=== PATIENT | male | born 1990 | race Caucasian/White ===

== ENCOUNTER 2017-07-24 17:58 | Emergency (ER) | payer OTHER, MEDICAID ==
[2017-07-24 18:14] VITALS: BP 124/86
--- NOTE | 2017-07-24 19:03 | ED Physician Documentation ---
PD HPI OPHTHO - Stated complaint Stated Complaint: L EYE INJ - Chief complaint Chief Complaint: Heent - History obtained from History obtained from: Patient - History of Present Illness Timing - onset: Today Timing - duration: Hours Timing - details: Abrupt onset, Still present Location: Left Quality / character: Aching Associated symptoms: Tearing, FB sensation. No: Redness, Swelling, Photophobia , Decreased vision Contributing factors: FB (he was chipping rock and a piece bounced back and struck him in left eye. Has FB sensation that did not improve with rinsing the eye.), Blunt trauma Similar symptoms before: Has not had sx before Recently seen: Not recently seen Review of Systems Constitutional: denies: Fever, Chills Eyes: reports: Irritation. denies: Loss of vision, Decreased vision, Photophobia Nose: denies: Rhinorrhea / runny nose, Congestion Throat: denies: Sore throat Respiratory: denies: Cough Neurologic: denies: Headache, Head injury PD PAST MEDICAL HISTORY - Past Medical History Past Medical History: No Cardiovascular: None Respiratory: None Neuro: None Endocrine/Autoimmune: None - Past Surgical History Past Surgical History: Yes - Present Medications Home Medications: Ambulatory Orders Medication Instructions Recorded Confirmed Erythromycin Base [Erythromycin 1 applic LEFTGABBYE QID #3.5 g 07/24/17 Ophthalmic Ointment] - Allergies Allergies/Adverse Reactions: Allergies Allergy/AdvReac Type Severity Reaction Status Date / Time No Known Drug Allergies Allergy Verified 07/24/17 18:14 - Social History Does the pt smoke?: Yes Smoking Status: Current every day smoker Does the pt drink ETOH?: No Does the pt have substance abuse?: Yes Substance Use and Type: Marijuana - Immunizations Immunizations are current?: Yes - POLST Patient has POLST: No PD ED PE NORMAL - Vitals Vital signs reviewed: Yes - General General: Alert and oriented X 3, No acute distress, Well developed/nourished - HEENT HEENT: PERRL, EOMI, Pharynx benign, Dentition benign, Other PD ED PE EXPANDED - Eyes Eyes: Left eye, Corneal abrasion, Fluorescein uptake, Anterior chambers clear, Normal fundi. No: Conj/sclera FB, Corneal FB, Corneal ulcer Results - Vitals Vitals: Oxygen O2 Source Room air PD MEDICAL DECISION MAKING - ED course Complexity details: considered differential (superficial dye uptake in small area left lower eye, not in visual axis. ), d/w patient Departure - Departure Disposition: 01 Home, Self Care Clinical Impression: Left eye pain Corneal abrasion Qualifiers: Encounter type: initial encounter Laterality: left Qualified Code(s): S05.02XA - Injury of conjunctiva and corneal abrasion without foreign body, left eye, initial encounter Condition: Stable Record reviewed to determine appropriate education?: Yes Instructions: ED Eye Injury Corneal Abrasion Follow-Up: Wayne Mcdonough MD [Provider Admit Priv/Credential] - Prescriptions: Erythromycin Base [Erythromycin Ophthalmic Ointment] 1 applic LEFTGABBYE QID #3.5 g Comments: There is a corneal abrasion. I do not see any foreign body still. I do not see any signs of injury to the anterior or posterior chamber of the eye. Using proparacaine numbing eyedrops as needed overnight into the morning. Do not use them beyond the morning or if you are going to be out and around. Use Tylenol or ibuprofen if needed for pains and at the hydrocodone if needed short-term. I would anticipate this to be improving into tomorrow and mostly better by . Recheck back with us or with an eyewear manufacturing tech if not all better on . Return sooner if worsening. If you do develop matting redness and purulence, like infection, then start the erythromycin ointment. At this point I do not think there is an infection just irritation and the antibiotic is not needed at this point. Discharge Date/Time: 07/24/17 20:11
[2017-07-24] MEDS ORDERED: HYDROcod/ACET 5/325 Prepack 6 PO STA (19:31)
[2017-07-24] MEDS ORDERED: HYDROcod/ACETAM 5/325 MG TABLET PO STA (19:31)
[2017-07-24] MEDS ORDERED: NAPROXEN 250 MG TABLET PO STA (19:31)
== END 2017-07-24 20:11 | disposition home or self-care (01) ==
LOC: ED 17:58
DX: S05.02XA Injury of conjunctiva and corneal abrasion without foreign body, left eye, initial encounter (principal); H57.12 Ocular pain, left eye; W22.8XXA Striking against or struck by other objects, initial encounter; Y92.89 Other specified places as the place of occurrence of the external cause; Y99.0 Civilian activity done for income or pay; F17.200 Nicotine dependence, unspecified, uncomplicated
CPT/HCPCS: 1040M; 99283; A9270

== ENCOUNTER 2017-10-15 08:54 | Day surgery (SDC) | payer MEDICAID ==
[2017-10-15] MEDS ORDERED: LACTATED RINGERS 1,000 ML IV ONE (09:15)
[2017-10-15 11:21] VITALS: BP 104/43
[2017-10-15] MEDS ORDERED: fentaNYL 250 MCG/5 ML VIAL IVP ONE (11:59)
[2017-10-15] MEDS ORDERED: MIDAZOLAM 2 MG/2 ML VIAL IVP ONE (11:59)
== END 2017-10-15 08:55 | disposition home or self-care (01) ==
LOC: SDS 08:54
PROVIDERS: ATTEND Surgery
PROC: 0DJD8ZZ Inspection of Lower Intestinal Tract, Via Natural or Artificial Opening Endoscopic (ICD-10-PCS; principal; 2017-10-15 09:15)
DX: K62.5 Hemorrhage of anus and rectum (principal); K64.8 Other hemorrhoids; F17.210 Nicotine dependence, cigarettes, uncomplicated
CPT/HCPCS: 45378; J3010; J7120

== ENCOUNTER 2022-05-09 09:40 | Emergency (ER) | payer MEDICAID, OTHER ==
--- NOTE | 2022-05-09 09:50 | ED Physician Documentation ---
PD HPI Fall - Stated complaint Stated Complaint: FALL FROM 25FT - Chief complaint Chief Complaint: Trauma Tip - History obtained from History obtained from: Patient - History of Present Illness Mechanism of injury: Slipped Fall distance: Greater than 20ft (patient anand doing house siding on scaffolding, slipped on frosted surface and fell 32 ft onto flat ground on right side. Pain in right hand/arm, left ankle, some on right face. denies loc/[place]/neck pain/chest pain.) Where injury occurred: Work Timing - onset: Today (able to stand and walk and brought here to ER by coworkers.) Injury(ies) location: Face, Right Upper Extremity, Right Hand, Left Foot. No: Neck, Chest, Abdomen Quality of pain: Pain, Aching Associated symptoms: No: LOC, AMS, Neck pain, Weakness, Paresthesias Symptoms improve with: Rest Worsens with: Movement (of base of thumb mainly) Similar symptoms before: Has not had sx before Recently seen: Not recently seen Review of Systems Constitutional: denies: Fever, Chills Nose: denies: Rhinorrhea / runny nose, Congestion Throat: denies: Sore throat Cardiac: denies: Chest pain / pressure Respiratory: denies: Cough GI: denies: Abdominal Pain, Nausea Skin: reports: Abrasion (s) (right elbow with mild laceration, not needing suturing.) Musculoskeletal: denies: Neck pain, Back pain Neurologic: denies: Focal weakness, Numbness, Altered mental status, Headache, Head injury, LOC PD PAST MEDICAL HISTORY - Past Medical History Cardiovascular: None Respiratory: None Endocrine/Autoimmune: None GI: None : None HEENT: None Psych: ADD/ADHD Musculoskeletal: None - Past Surgical History Past Surgical History: Yes - Present Medications Home Medications: Ambulatory Orders Medication Instructions Recorded Confirmed HYDROcod/ACETAM 5/325 [Paradise 5/325] 1 ea PO Q6H PRN #18 tablet 05/09/22 Naproxen 500 mg PO BID #20 tab 05/09/22 - Allergies Allergies/Adverse Reactions: Allergies Allergy/AdvReac Type Severity Reaction Status Date / Time No Known Drug Allergies Allergy Verified 05/09/22 09:47 - Social History Does the pt smoke?: Yes Smoking Status: Current every day smoker Does the pt drink ETOH?: No Does the pt have substance abuse?: Yes - Immunizations Immunizations are current?: Yes - POLST Patient has POLST: No PD ED PE NORMAL - Vitals Vital signs reviewed: Yes - General General: Alert and oriented X 3, No acute distress, Well developed/nourished - HEENT HEENT: PERRL, EOMI, Other (there is some mild swelling and tenderness right cheek. no noted bony deformity. ) - Neck Neck: Supple, no meningeal sign, No bony TTP - Cardiac Cardiac: RRR, No murmur - Respiratory Respiratory: Clear bilaterally, Other (no chestwall tenderness. ) - Abdomen Abdomen: Soft, Non tender - Back Back: No CVA TTP, No spinal TTP - Derm Derm: Normal color, Warm and dry - Extremities Extremities: Other (left ankle with some tenderness laterally without deformity. mild swelling. Achilles normal. Right first mc area with swelling and tenderness. pain with attempted ROM of the thumb. Right elbow with lac/abrasion partial thickness. no FB nor bleeding. Good ROM of the elbow without effusion. ) - Neuro Neuro: Alert and oriented X 3, No motor deficit, No sensory deficit, Normal speech Eye Opening: Spontaneous Motor: Obeys Commands Verbal: Oriented GCS Score: 15 Results - Vitals Vitals: Vital Signs - 24 hr 05/09/22 05/09/22 05/09/22 09:44 10:17 10:30 Temperature 36.4 C L Heart Rate 66 74 69 Respiratory 12 16 20 Rate Blood Pressure 101/59 L 115/102 H O2 Saturation 100 100 99 05/09/22 05/09/22 05/09/22 11:00 11:30 12:00 Temperature 36.8 C 36.6 C 36.8 C Heart Rate 67 66 78 Respiratory 20 14 16 Rate Blood Pressure 131/80 H 120/76 120/74 O2 Saturation 100 100 100 Oxygen O2 Source Room air - Labs Labs: Laboratory Tests 05/09/22 05/09/22 09:54 09:54 WBC 9.6 RBC 5.45 Hgb 16.2 Hct 48.8 MCV 89.5 MCH 29.7 MCHC 33.2 RDW 12.6 Plt Count 273 MPV 10.2 Neut # (Auto) 6.2 Lymph # (Auto) 2.3 [place] # (Auto) 0.8 Eos # (Auto) 0.2 Baso # (Auto) 0.1 Absolute Nucleated RBC 0.00 Nucleated RBC % 0.0 Sodium 135 Potassium 3.1 L Chloride 98 L Carbon Dioxide 26 Anion Gap 11.0 BUN 9 Creatinine 1.0 Estimated GFR (MDRD) 88 L Glucose 139 H Calcium 9.3 Total Bilirubin 1.0 AST 21 ALT 17 Alkaline Phosphatase 62 Total Protein 7.2 Albumin 4.4 Globulin 2.8 Albumin/Globulin Ratio 1.6 Lipase 32 - Rads (name of study) head/neck cT Radiology: Prelim report reviewed (no ICH nor fractures), See rad report chest/abd/pelvis cT Radiology: Prelim report reviewed (no traumatic findings.), See rad report left ankile Radiology: Prelim report reviewed (no fractures), See rad report right hand Radiology: Prelim report reviewed (base 1st MC comminuted fracture.), See rad report righelbow Radiology: Prelim report reviewed (no fractures), See rad report Procedures - Splint (location) right hand Splint applied by: Physician Type of splint: Fiberglass, Short arm, Thumb spica (well padded) Other: Patient tolerated well, No complications, Neurovascular intact, Sling provided PD MEDICAL DECISION MAKING - ED course Complexity details: reviewed results, considered differential (significant mechanism of injury with 32 ft fall onto firm ground. Eval as modified trauma. ), d/w patient Departure - Departure Disposition: 01 Home, Self Care Clinical Impression: Injury resulting from fall from height Elbow laceration Qualifiers: Encounter type: initial encounter Laterality: right Qualified Code(s): S51.011A - Laceration without foreign body of right elbow, initial encounter First metacarpal bone fracture Qualifiers: Encounter type: initial encounter Fracture type: closed Metacarpal location: base Fracture morphology: Lindquist's Laterality: right Qualified Code(s): S62.211A - Lindquist's fracture, right hand, initial encounter for closed fracture Ankle sprain Qualifiers: Encounter type: initial encounter Involved ligament of ankle: unspecified ligament Laterality: left Qualified Code(s): S93.402A - Sprain of unspecified ligament of left ankle, initial encounter Facial contusion Qualifiers: Encounter type: initial encounter Qualified Code(s): S00.83XA - Contusion of other part of head, initial encounter Condition: Stable Record reviewed to determine appropriate education?: Yes Instructions: ED Fx Thumb Follow-Up: Zeyad Bang MD [Provider Admit Priv/Credential] - Prescriptions: Naproxen 500 mg PO BID #20 tab HYDROcod/ACETAM 5/325 [Paradise 5/325] 1 ea PO Q6H PRN #18 tablet PRN Reason: Pain Comments: Keep the splint in place. You can clean the wound on the elbow once or twice daily with soap and water and apply ointment and dressings. Use the sling to help support the elbow and hand. Ankle brace when up and around for the next 1 or 2 weeks for the ankle sprain. No signs of fracture on your ankle. No signs of injury of the head neck chest or belly on CT scans. You do have a fracture at the base of the right thumb that we will need orthopedic evaluation and possible surgery. You can follow-up with orthopedics here on would be or of call orthopedics such as the [facility] for follow-up. Follow-up later this week or early next week after time for the swelling to go down. Call today for an appointment however. Anti-inflammatory such as naproxen twice daily with food. Add Tylenol every 4-6 hours if needed for pain or hydrocodone if needed for worse pain. I sent your prescriptions to [facility] in [place] near the [facility]. I am prescribing a short course of narcotic pain medication for you. These are potentially dangerous and addictive medications that should be used carefully. These medications may constipate you. Take an zhyg-[id number] stool softener such as docusate twice daily with plenty of water while taking these medications. If you go 24 hours without a bowel movement, take [id number]-[id number] MiraLAX, per package instructions. Do not drink or drive while taking these medications. If you received narcotic or sedating medications while in the emergency department do not drive for 24 hours. Store this medication in a safe, secure place and out of reach of children. It is a violation of federal law to give or sell this medication to another person or to use in a manner other than prescribed. The ED will not refill narcotic prescriptions, including prescriptions lost or stolen. You can dispose of unwanted medications at the [facility]'s office or at several pharmacies such as [facility]. Forms: Activity restrictions Discharge Date/Time: 05/09/22 12:53
[2022-05-09] MEDS ORDERED: KETOROLAC 15 MG/ML VIAL IVP STA (10:15)
[2022-05-09] MEDS ORDERED: SODIUM CHLORIDE 0.9% 1,000 ML IV STA (10:16)
[2022-05-09] MEDS ORDERED: HYDROmorphone 0.5 MG/0.5 ML SYRINGE IVP STA ×2 (10:16→12:27)
[2022-05-09] MEDS ORDERED: iohexoL-300 100 ML VIAL ONE (10:19)
[2022-05-09 10:23] LABS: BASOPHILS # (AUTO) 0.1 10^3/uL (0.0-0.1); EOSINOPHILS # (AUTO) 0.2 10^3/uL (0.0-0.7); EOSINOPHILS % (AUTO) 1.9 %; HCT - HEMATOCRIT 48.8 % (42.0-52.0); HGB - HEMOGLOBIN 16.2 g/dL (14.0-18.0); LYMPHOCYTES # (AUTO) 2.3 10^3/uL (1.5-3.5); LYMPHOCYTES % (AUTO) 24.3 %; MEAN CORPUSCULAR HEMOGLOBIN 29.7 pg (27.0-31.0); MEAN CORPUSCULAR HGB CONC 33.2 g/dL (32.0-36.0); MEAN CORPUSCULAR VOLUME 89.5 fL (80.0-94.0); MEAN PLATELET VOLUME 10.2 fL (7.4-11.4); MONOCYTES # (AUTO) 0.8 10^3/uL (0.0-1.0); MONOCYTES % (AUTO) 8.3 %; NEUTROPHILS # (AUTO) 6.2 10^3/uL (1.5-6.6); NEUTROPHILS % (AUTO) 64.1 %; PLT - PLATELET COUNT 273 10^3/uL (130-450); RED BLOOD COUNT 5.45 10^6/uL (4.70-6.10); RED CELL DISTRIBUTION WIDTH 12.6 % (12.0-15.0); WHITE BLOOD COUNT 9.6 x10^3/uL (4.8-10.8)
[2022-05-09 10:34] LABS: ALBUMIN 4.4 g/dL (3.2-5.5); ALBUMIN/GLOBULIN RATIO 1.6 (1.0-2.2); CALCIUM 9.3 mg/dL (8.5-10.3); POTASSIUM 3.1 mmol/L (3.5-5.0); TOTAL PROTEIN 7.2 g/dL (6.7-8.2)
--- NOTE | 2022-05-09 11:29 | CT Report ---
PROCEDURE: HEAD WO INDICATIONS: fall from scaffold TECHNIQUE: Noncontrast 4.5 mm thick angled axial sections acquired from the foramen magnum to the vertex. For r adiation dose reduction, the following was used: automated exposure control, adjustment of mA and/or kV according to patient size. COMPARISON: None. FINDINGS: Image quality: Excellent. CSF spaces: Basal cisterns are patent. No extra-axial fluid collections. Ventricles are normal in size and shape. Brain: No midline shift. No intracranial masses or hemorrhage. Knight-white matter interface is norm al. Skull and face: Calvarium and visualized facial bones are intact, without suspicious lesions. Sinuses: Visualized sinuses and mastoids are clear. IMPRESSION: No evidence acute intracranial process. Reviewed by: Ronald Srivastava MD on 05/09/2022 11:28 AM PST Approved by: Ronald Srivastava MD on 05/09/2022 11:28 AM [facility] Station ID: [id number]
--- NOTE | 2022-05-09 11:30 | CT Report ---
PROCEDURE: CERVICAL SPINE WO INDICATIONS: fall from scaffold TECHNIQUE: Noncontrast 3 mm thick sections acquired from the skull base to the T4 level. Sagittal and coronal r eformats were then constructed. For radiation dose reduction, the following was used: automated exp osure control, adjustment of mA and/or kV according to patient size. COMPARISON: None. FINDINGS: Image quality: Excellent. Bones: No fractures or dislocations. Visualized superior ribs are intact. Soft tissues: Prevertebral soft tissues are normal in thickness. No paravertebral hematomas. No ap ical pneumothoraces. IMPRESSION: No evidence acute cervical fracture or dislocation. Reviewed by: Ronald Srivastava MD on 05/09/2022 11:29 AM [facility] Approved by: Ronald Srivastava MD on 05/09/2022 11:29 AM PST Station ID: [id number]
--- NOTE | 2022-05-09 11:31 | XRAY Report ---
PROCEDURE: Ankle 3 View LT INDICATIONS: fall from scaffold; ankle pain TECHNIQUE: 3 views of the ankle were acquired. COMPARISON: None FINDINGS: Bones: No fractures or dislocations. Ankle mortise is normally aligned. No suspicious bony lesions . Soft tissues: No tibiotalar joint effusion. Achilles tendon appears normal. IMPRESSION: No evidence acute fracture or dislocation at the ankle. Reviewed by: Ronald Srivastava MD on 05/09/2022 11:29 AM PST Approved by: Ronald Srivastava MD on 05/09/2022 11:29 AM PST Station ID: [id number]
--- NOTE | 2022-05-09 11:45 | CT Report ---
PROCEDURE: CT chest without contrast INDICATIONS: fall from scaffold CONTRAST:100ml Omnipaque 300 TECHNIQUE: After the administration of intravenous contrast, 1 mm axial images were acquired from the pulmonary apices through the posterior costophrenic angles. Axial 5 mm soft tissue kernel reconstructions were performed as well as 8 mm axial MIP and coronal and sagittal 5 mm reformations. For radiation dose reduction, the following was used: automated exposure control, adjustment of mA and/or kV according to patient size. COMPARISON: None. FINDINGS: Image quality: Excellent. Lungs and pleura: No acute air space opacities. No pleural effusions or pneumothorax. Central and peripheral airways are patent and normal in caliber. Mild dependent atelectasis. Mediastinum: Heart size is normal. No pericardial effusion. No mediastinal or hilar adenopathy by size criteria. Thoracic aorta and central pulmonary arteries are normal in size. Esophagus is ramesh l in caliber. No hiatal hernia. Bones and chest wall: No suspicious bony lesions. No vertebral body compression fractures. No axil chris or supraclavicular adenopathy by size criteria. The thyroid is normal in size and there are no incidental findings.. Abdomen: Visualized upper abdominal solid organs appear normal. Upper abdominal bowel loops are nor mal in caliber. IMPRESSION: Mild dependent pulmonary atelectasis. No evidence of pulmonary contusion, rib fracture or pneumothora x. Reviewed by: Rene Corbin MD on 05/09/2022 10:44 AM [facility] Approved by: Rene Corbin MD on 05/09/2022 10:44 AM [facility] Station ID: [id number]
--- NOTE | 2022-05-09 11:48 | CT Report ---
PROCEDURE: CT abdomen and pelvis with contrast INDICATIONS: fall from scaffolding CONTRAST: 100ml Omnipaque 300 TECHNIQUE: After the administration of contrast, 5 mm thick sections acquired from the diaphragms to the sym physis. 5 mm thick coronal and sagittal reformats were acquired. For radiation dose reduction, the following was used: automated exposure control, adjustment of mA and/or kV according to patient size . COMPARISON: None. FINDINGS: Image quality: Excellent. ABDOMEN: Solid organs: Liver and spleen are normal in size and enhancement. Gallbladder unremarkable. Bilia ry system is non dilated. Pancreas enhances normally. No adrenal nodules. Kidneys demonstrate norm al size and enhancement, without hydronephrosis. Peritoneum and bowel: Bowel loops demonstrate normal wall thickness and caliber. No free fluid or a ir. Nodes and vessels: No retroperitoneal or mesenteric adenopathy by size criteria. Aorta and inferior vena cava are normal in size. Miscellaneous: No ventral hernias. PELVIS: Genitourinary: Bladder wall thickness is normal. Miscellaneous: No inguinal hernias or adenopathy. Bones: No suspicious bony lesions. No vertebral body compression fractures. IMPRESSION: Normal CT of the abdomen and pelvis. No evidence of osseous or solid organ injury. Reviewed by: Rene Corbin MD on 05/09/2022 10:47 AM [facility] Approved by: Rene Corbin MD on 05/09/2022 10:47 AM [facility] Station ID: [id number]
--- NOTE | 2022-05-09 12:01 | XRAY Report ---
PROCEDURE: Elbow 3 View RT INDICATIONS: fall from scaffold, hand/elbow pain TECHNIQUE: 3 views of the elbow were acquired. COMPARISON: None FINDINGS: Bones: No fractures or dislocations. No suspicious bony lesions. Soft tissues: No elbow joint effusion. No suspicious soft tissue calcifications. IMPRESSION: No fracture or foreign body Reviewed by: Rene Corbin MD on 05/09/2022 10:59 AM [facility] Approved by: Rene Corbin MD on 05/09/2022 10:59 AM [facility] Station ID: [id number]
[2022-05-09 12:08] VITALS: BP 120/74
--- NOTE | 2022-05-09 12:09 | XRAY Report ---
PROCEDURE: Hand 3 View RT INDICATIONS: fall from scaffold, hand/elbow pain TECHNIQUE: 3 views of the hand(s) acquired. COMPARISON: None FINDINGS: Bones: Comminuted fracture of the base of the first metacarpal with carpometacarpal joint involvement . Soft tissues: No suspicious soft tissue calcifications. IMPRESSION: 1. Comminuted intra-articular base of first metacarpal fracture Reviewed by: Rene Corbin MD on 05/09/2022 11:08 AM [facility] Approved by: Rene Corbin MD on 05/09/2022 11:08 AM [place] Station ID: [id number]
[2022-05-09] MEDS ORDERED: iohexoL-300 100 ML VIAL IVP ONE (12:10)
== END 2022-05-09 12:53 | disposition home or self-care (01) ==
LOC: ED 09:40
DX: S51.011A Laceration without foreign body of right elbow, initial encounter (principal); S62.211A Bennett's fracture, right hand, initial encounter for closed fracture; S93.402A Sprain of unspecified ligament of left ankle, initial encounter; S00.83XA Contusion of other part of head, initial encounter; W12.XXXA Fall on and from scaffolding, initial encounter; Y93.H3 Activity, building and construction; Y92.098 Other place in other non-institutional residence as the place of occurrence of the external cause; Y99.0 Civilian activity done for income or pay; F17.200 Nicotine dependence, unspecified, uncomplicated
CPT/HCPCS: 36415; 70450; 71260; 72125; 73080; 73130; 73610; 74177; 80053; 83690; 85025; 96374; 96375; 96376; 99284; J1170; Q9967; 1040M

== ENCOUNTER 2022-05-15 08:00 | Outpatient (CLI) | payer MEDICAID, OTHER ==
--- NOTE | 2022-05-15 11:02 | XRAY Report ---
PROCEDURE: Hand 3 View RT INDICATIONS: RIGHT HAND FRACTURE TECHNIQUE: 3 views of the hand(s) acquired. COMPARISON: None FINDINGS: Bones: There is a comminuted, displaced fracture at the base of the right first metacarpal. This like ly extends into the CMC joint space. No other fracture or dislocation. Soft tissues: No suspicious soft tissue calcifications. IMPRESSION: Comminuted displaced, likely intra-articular fracture at the base of the right first metacarpal. Reviewed by: Susana Solis MD on 05/15/2022 11:01 AM PST Approved by: Susana Solis MD on 05/15/2022 11:01 AM PST Station ID: [id number]
== END 2022-05-15 23:59 | disposition home or self-care (01) ==
LOC: DI.WOS 08:00
PROVIDERS: ATTEND Orthopaedic Surgery
DX: S62.231A Other displaced fracture of base of first metacarpal bone, right hand, initial encounter for closed fracture (principal); Y99.0 Civilian activity done for income or pay

== ENCOUNTER 2022-05-17 07:39 | Day surgery (SDC) | payer OTHER ==
[~2022-05-17 07:39] MED LIST: ACETAMINOPHEN 500 MG TABLET PO ONE; CEFAZOLIN 2G/50ML 0.9% NS 2 GM/50 ML BAG IV ONE; CELECOXIB 100 MG CAPSULE PO ONE
[2022-05-17] MEDS ORDERED: LACTATED RINGERS 1,000 ML IV ONE ×2 (07:57→09:58)
[2022-05-17] MEDS ORDERED: BUPIVACAINE 0.5% PF 30 ML VIAL ONE (08:12)
--- NOTE | 2022-05-17 08:42 | ANESTHESIA ---
Pre-Anesthesia VS, & Labs - Diagnosis right thumb metacarpal displaced fracture - Procedure closed reduction and perc. pinning of right thumb metacarpal fracture Vital Signs: Temp Pulse Resp BP Pulse Ox O2 Flow Rate 36.5 C 75 14 127/76 100 05/17/22 07:59 05/17/22 07:59 05/17/22 07:59 05/17/22 07:59 05/17/22 07:59 Height: 5 ft 10 in Weight (kg): 72.6 kg Body Mass Index: 22.9 BMI Classification: Normal - NPO >8 hours Home Medications and Allergies Allergies/Adverse Reactions: Allergies Allergy/AdvReac Type Severity Reaction Status Date / Time No Known Drug Allergies Allergy Verified 05/09/22 09:47 Anes History & Medical History - Anesthetic History Family history of Anesthesia Complications: Denies Family history of Malignant Hyperthermia: Denies - Medical History Cardiovascular: reports: None Pulmonary: reports: None Gastrointestinal: reports: None Urinary: reports: None Neuro: reports: None Musculoskeletal: reports: None Endocrine/Autoimmune: reports: None Skin: reports: None Smoking Status: Current every day smoker Psychosocial: reports: No issues indicated History of Cancer?: No Exam General: Alert, Oriented x3, Cooperative, No acute distress Dental: WNL Mouth Openin Fingerbreadth Neck Mobility: Normal Mallampati classification: II Thyromental Distance: 4-6 cm Mental/Cognitive Status: Alert/Oriented X3, Normal for patient Plan Anesthesia Type: General Consent for Procedure(s) Verified and Reviewed: Yes Code Status: Attempt Resuscitation ASA classification: 2-Mild systemic disease Is this case an emergency?: No
[2022-05-17] MEDS ORDERED: ATROPINE ABBOJECT 1 MG/10 ML SYRINGE IVP PRN (08:45)
[2022-05-17] MEDS ORDERED: HYDROmorphone 0.5 MG/0.5 ML SYRINGE IVP PRN (08:45)
[2022-05-17] MEDS ORDERED: fentaNYL 100 MCG/2 ML VIAL IVP PRN (08:45)
[2022-05-17] MEDS ORDERED: NALOXONE 0.4 MG/ML VIAL IVP PRN (08:45)
[2022-05-17] MEDS ORDERED: MORPHINE 2 MG/ML CARPUJECT IVP PRN (08:45)
[2022-05-17] MEDS ORDERED: ONDANSETRON 4 MG/2 ML VIAL IVP PRN (08:45)
[2022-05-17] MEDS ORDERED: PROPOFOL 200 MG/20 ML VIAL IVP ONE (08:48)
[2022-05-17] MEDS ORDERED: MIDAZOLAM 2 MG/2 ML VIAL ONE (08:48)
[2022-05-17] MEDS ORDERED: LACTATED RINGERS 1,000 ML IV SCH (09:00)
[2022-05-17] MEDS ORDERED: ONDANSETRON 4 MG/2 ML VIAL ONE (09:10)
[2022-05-17] MEDS ORDERED: DEXAMETHASONE 4 MG/ML VIAL ONE (09:10)
[2022-05-17] MEDS ORDERED: BUPIVACAINE 0.5% PF 10 ML VIAL SUBQ ONE ×2 (09:30)
--- NOTE | 2022-05-17 10:08 | OPERATIVE REPORT ---
Operative Report - General Procedure Date: 05/17/22 Planned Procedure: Closed reduction percutaneous pinning right thumb metacarpal base, possible open reduction internal fixation right thumb metacarpal base Pre-Op Diagnosis: Displaced, right thumb metacarpal base articular fracture, comminuted Procedure Performed: Closed reduction, percutaneous pinning right thumb metacarpal base articular fracture Post Op Diagnosis: Same as preoperative diagnosis. 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 He had localized pain and swelling to base of right thumb. His exam showed tenderness and swelling to the base of the right thumb, tendon function intact, neurovascular intact. X-ray showed a three-part fracture of the metacarpal base, articular fracture with displacement consistent with a RolandoFracture. The treatment alternatives were discussed, Multiple pin versus plate and screw fixation. An informed consent was obtained prior to surgery. Findings: Displaced three-part intra-articular fracture right thumb metacarpal base. Complications: None - Other Other Information/Narrative: The patient was brought to the operating room, placed in the supine position with the right arm over arm extension table. A pneumatic tourniquet was applied to the proximal right arm. The right upper extremity was prepped and draped in sterile manner in the usual fashion. A timeout procedure was performed by the entire operating room team and all were in agreement. The C-arm image intensifier was covered with a sterile drape and was used intermittently throughout the procedure. Sterile thumb fingertrap traction was utilized with radial abduction. The fracture seem to align satisfactorily with traction views. A 0.45 K wire was inserted percutaneously from the radial aspect of the thumb metacarpal base to engage both of the 2 articular fragments. An additional pin was inserted to give to pin fixation of the articular segment. A 0.062 inch K wire was used to engage the shaft and then inserted the pin across the fracture into the ulnar most aspect of the metacarpal base. An additional 0.062 K wire was inserted to provide for pin fixation. AP, radial abduction views, lateral and attempt at a Wayne view was also utilized for fracture visualization. The alignment appears satisfactory and the fracture appeared to be stable. The joint was congruent placed within 1 mm. The K wires were cut external to the skin, capped with sterile balls. 9 cc of 0.5% Marcaine was used to inject to block the superficial radial nerve and about 3 cc into the carpal tunnel to block the median nerve. A well-padded short arm thumb spica splint was applied with fiberglass splint. He tolerated the procedure well. A tourniquet was not utilized. A physician retail loan originator assistant was medically necessary to help with prepping and draping, positioning, protection of vital structures, assistance during the procedure including wound closure, dressing and/or splinting. He received 2 g of Ancef intravenously prior to the procedure
[2022-05-17] MEDS ORDERED: ACETAMINOPHEN 500 MG TABLET PO PRN (10:10)
[2022-05-17] MEDS ORDERED: oxyCODONE 5 MG TABLET PO PRN (10:10)
[2022-05-17] MEDS ORDERED: ONDANSETRON ODT 4 MG TABLET TL PRN (10:10)
[2022-05-17] MEDS ORDERED: CELECOXIB 100 MG CAPSULE PO PRN (10:10)
--- NOTE | 2022-05-17 10:15 | ANESTHESIA POST OP EVALUATION ---
Anesthesia Post Eval - Post Anesthesia Eval Vitals: Last Vital Signs Temp 36.4 C L 05/17/22 10:10 Pulse 79 05/17/22 10:10 Resp 17 05/17/22 10:10 BP 140/92 H 05/17/22 10:10 Pulse Ox 100 05/17/22 10:10 O2 Flow Rate CV Function Including HR & BP: Stable Pain Control: Satisfactory Nausea & Vomiting: Negative Mental Status: Baseline Respiratory Status: Airway Patent Hydration Status: Satisfactory Anesthesia Complications: None
[2022-05-17 10:33] VITALS: BP 133/76
--- NOTE | 2022-05-17 14:41 | XRAY Report ---
PROCEDURE: OR C-Arm Procedure INDICATIONS: HAND FX FLUORO TIME: 0:21 MIN TECHNIQUE: 2 intraoperative views of the right hand. COMPARISON: Right hand radiographs 05/15/2022. FINDINGS: K wire fixation x4 at the first digit metacarpal base. IMPRESSION: Intraoperative guidance provided. Reviewed by: Jatinder Brenner MD on 05/17/2022 2:39 PM PST Approved by: Jatinder Brenner MD on 05/17/2022 2:39 PM PST Station ID: [id number]
== END 2022-05-17 07:40 | disposition home or self-care (01) ==
LOC: SDS 07:39
PROVIDERS: ATTEND Orthopaedic Surgery
DX: S62.221A Displaced Rolando's fracture, right hand, initial encounter for closed fracture (principal); W17.89XA Other fall from one level to another, initial encounter; Y93.H3 Activity, building and construction; Y99.0 Civilian activity done for income or pay; F17.210 Nicotine dependence, cigarettes, uncomplicated; Z20.822 Contact with and (suspected) exposure to COVID-19
CPT/HCPCS: 26608; 87635; A9270; C1713; J0690; J7120

== ENCOUNTER 2022-06-08 15:29 | Outpatient (CLI) | payer OTHER, MEDICAID ==
--- NOTE | 2022-06-08 13:31 | XRAY Report ---
PROCEDURE: Finger(s) RT INDICATIONS: RIGHT THUMB FX/PINNING TECHNIQUE: 3 views of the first finger COMPARISON: X-ray right hand, 05/15/2022 and 05/09/2022. FINDINGS: Bones: There is open reduction and external fixation of comminuted first metatarsal base fracture wit h 3 surgical pins. The alignment is improved. No suspicious bony lesions. Soft tissues: No suspicious soft tissue calcifications. IMPRESSION: Open reduction and external fixation of comminuted first metatarsal base fracture. The alignment is i mproved. Reviewed by: Kemi Mason MD on 06/08/2022 1:29 PM PST Approved by: Kemi Mason MD on 06/08/2022 1:29 PM PST Station ID: [id number]
== END 2022-06-08 15:44 | disposition home or self-care (01) ==
LOC: DI.WOS 15:29
PROVIDERS: ATTEND Orthopaedic Surgery
DX: S62.221D Displaced Rolando's fracture, right hand, subsequent encounter for fracture with routine healing (principal); Y99.0 Civilian activity done for income or pay

== ENCOUNTER 2022-06-13 08:00 | Outpatient (CLI) | payer MEDICAID, OTHER ==
--- NOTE | 2022-06-13 13:50 | XRAY Report ---
PROCEDURE: Finger(s) RT INDICATIONS: RIGHT THUMB FRACTURE TECHNIQUE: 3 views of the right hand thumb obtained. COMPARISON: Right thumb radiographs 06/08/2022 FINDINGS: Interval removal of the wires previously transfixing the first digit metacarpal fracture. As before, the fracture involves the base of the metacarpal, is intra-articular and comminuted, mildly displaced . There is adjacent bony callus, similar to slightly increased. IMPRESSION: Interval removal of the fixation wires about the first digit metacarpal fracture. Fracture alignment is similar to before. Adjacent bony callus is similar to slightly increased. Reviewed by: Kilo Pickett MD on 06/13/2022 1:49 PM PST Approved by: Kilo Pickett MD on 06/13/2022 1:49 PM PST Station ID: [id number]
== END 2022-06-13 08:01 | disposition home or self-care (01) ==
LOC: DI.WOS 08:00
PROVIDERS: ATTEND Orthopaedic Surgery
DX: S62.221D Displaced Rolando's fracture, right hand, subsequent encounter for fracture with routine healing (principal)

== ENCOUNTER 2022-07-25 15:36 | Outpatient (CLI) | payer MEDICAID, OTHER ==
--- NOTE | 2022-07-25 13:07 | XRAY Report ---
PROCEDURE: Finger(s) RT INDICATIONS: RIGHT THUMB FRACTURE TECHNIQUE: AP hand, 2 views of the first finger(s) acquired. COMPARISON: X-ray right first finger, 06/13/2022, 06/08/2022. X-ray right hand, 05/15/2022 and 05/09. FINDINGS: Bones: There is a comminuted fracture involving the proximal first metacarpal with intra-articular in volvement. The alignment is stable There is callus formation consistent with healing. No suspicious bony lesions. Soft tissues: No suspicious soft tissue calcifications. IMPRESSION: Healing fracture of the proximal first metacarpal with stable alignment. Reviewed by: Kemi Mason MD on 07/25/2022 1:05 PM PST Approved by: Kemi Mason MD on 07/25/2022 1:05 PM PST Station ID: [id number]
== END 2022-07-25 15:38 | disposition home or self-care (01) ==
LOC: DI.WOS 15:36
PROVIDERS: ATTEND Orthopaedic Surgery
DX: S62.221D Displaced Rolando's fracture, right hand, subsequent encounter for fracture with routine healing (principal)

== ENCOUNTER 2022-09-12 08:00 | Outpatient (CLI) | payer MEDICAID, OTHER ==
--- NOTE | 2022-09-12 16:46 | XRAY Report ---
PROCEDURE: Finger(s) RT INDICATIONS: RIGHT THUMB FRACTURE TECHNIQUE: AP hand, 3 views of the right first finger(s) acquired. COMPARISON: 3 views of the right hand dated 07/25/2022, 06/13/2022 FINDINGS: Bones: Fracture of the first metacarpal is redemonstrated. Fracture fragments are in unchanged anatom ic alignment. Increased callus is now visualized. Soft tissues: No suspicious soft tissue calcifications. IMPRESSION: Continued interval healing of the right first metacarpal fracture. Reviewed by: Susana Solis MD on 09/12/2022 4:45 PM PDT Approved by: Susana Solis MD on 09/12/2022 4:45 PM PDT Station ID: [id number]
== END 2022-09-12 23:59 | disposition home or self-care (01) ==
LOC: DI.WOS 08:00
PROVIDERS: ATTEND Orthopaedic Surgery
DX: S62.221D Displaced Rolando's fracture, right hand, subsequent encounter for fracture with routine healing (principal)